=== PATIENT | male | born 1990 | race Caucasian/White ===

== ENCOUNTER 2016-10-13 14:00 | Emergency (ER) | payer MEDICARE, OTHER ==
--- NOTE | 2016-10-13 14:32 | ED ---
Psych HPI - General Chief Complaint: Psychiatric Symptoms Stated Complaint: Mental Health Eval Time Seen by Provider: 10/13/16 14:16 Source: patient Mode of arrival: ambulatory - History of Present Illness Initial Comments: 26-year-old male presents emergency department for psychiatric evaluation. Patient states that he has a history of schizophrenia, drug abuse. Patient states that he normally sees a psychiatrist in [place] police states that he was evicted from his apartment and is homeless in [place] though he is currently staying with his father in the meantime here. Patient states he has not used any illicit drugs and last 2 weeks as his been stable his father. Patient denies any alcohol abuse. Patient states he also hears voices and is states his medications that he does take has not stopped them. Patient states that he feels that he may kill himself with his drug abuse. Patient states that he uses heroin/meth/crack. Patient states he normally injects. Patient denies any physical was at this time. Patient has a homicidal thoughts. Patient states he has stating rehab facility in [place] for 30 days in the past. - Related Data Home Medications Medication Instructions Recorded Confirmed Cariprazine Hydrochloride [Vraylar] 6 mg PO HS 10/13/16 10/13/16 Vortioxetine Hydrobromide 10 mg PO QAM 10/13/16 10/13/16 [Trintellix] buPROPion XL [Wellbutrin Xl] 300 mg PO DAILY 10/13/16 10/13/16 clonazePAM [KlonoPIN] 0.5 mg PO BID PRN 10/13/16 10/13/16 Allergies Allergy/AdvReac Type Severity Reaction Status Date / Time atomoxetine [From Strattera] Allergy Rash/Hives Verified 10/13/16 15:17 Review of Systems ROS Statement: Those systems with pertinent positive or pertinent negative responses have been documented in the HPI. ROS Other: All systems not noted in ROS Statement are negative. Past Medical History Past Medical History: No Reported History History of Any Multi-Drug Resistant Organisms: None Reported Past Surgical History: Orthopedic Surgery Past Psychological History: Anxiety, Depression, Schizophrenia Smoking Status: Current every day smoker Past Alcohol Use History: Occasional Past Drug Use History: None Reported General Exam Limitations: no limitations General appearance: alert, in no apparent distress Head exam: Present: atraumatic, normocephalic, normal inspection Eye exam: Present: normal appearance, PERRL, EOMI. Absent: scleral icterus, conjunctival injection, periorbital swelling ENT exam: Present: normal exam, normal oropharynx, mucous membranes moist, TM's normal bilaterally, normal external ear exam Neck exam: Present: normal inspection, full ROM. Absent: tenderness, meningismus, lymphadenopathy Respiratory exam: Present: normal lung sounds bilaterally. Absent: respiratory distress, wheezes, rales, rhonchi, stridor Cardiovascular Exam: Present: regular rate, normal rhythm, normal heart sounds. Absent: systolic murmur, diastolic murmur, rubs, gallop, clicks GI/Abdominal exam: Present: soft, normal bowel sounds. Absent: distended, tenderness, guarding, rebound, rigid Neurological exam: Present: alert, oriented X3, CN II-XII intact Psychiatric exam: Present: flat affect Skin exam: Present: warm, dry, intact, normal color. Absent: rash Course Vital Signs 10/13/16 14:01 Temperature 98.2 F Pulse Rate 110 H Respiratory 20 Rate Blood Pressure 147/109 O2 Sat by Pulse 99 Oximetry Medical Decision Making - Medical Decision Making Patient was evaluated by EPS. Patient does not meet inpatient criteria at this time. Patient will be linked with [facility] locally. Patient has open case in the interim. Patient will be discharged to [facility]. - Lab Data Lab Results 10/13/16 Range/Units 16:10 Urine Opiates Screen Not Detected (NotDetected) Ur Oxycodone Screen Not Detected (NotDetected) Urine Methadone Screen Not Detected (NotDetected) Ur Propoxyphene Screen Not Detected (NotDetected) Ur Barbiturates Screen Not Detected (NotDetected) U Tricyclic Antidepress Not Detected (NotDetected) Ur Phencyclidine Scrn Not Detected (NotDetected) Ur Amphetamines Screen Not Detected (NotDetected) U Methamphetamines Scrn Not Detected (NotDetected) U Benzodiazepines Scrn Not Detected (NotDetected) Urine Cocaine Screen Not Detected (NotDetected) U Marijuana (THC) Screen Not Detected (NotDetected) Disposition Clinical Impression: Schizophrenia, History of drug abuse Disposition: HOME SELF-CARE Condition: Stable Instructions: Schizophrenia (ED) Additional Instructions: Follow up with [facility] as directed.Please return to the Emergency Department if symptoms worsen or any other concerns. Time of Disposition: 18:55
[2016-10-13 19:05] VITALS: BP 125/76; PULSE 107; RESP 18; TEMP 98
== END 2016-10-13 19:06 | disposition home or self-care (01) ==
LOC: EC 14:00
DX: F20.9 Schizophrenia, unspecified (principal); F32.9 Major depressive disorder, single episode, unspecified; F41.9 Anxiety disorder, unspecified; F17.200 Nicotine dependence, unspecified, uncomplicated; Z86.59 Personal history of other mental and behavioral disorders; Z79.899 Other long term (current) drug therapy; Z88.8 Allergy status to other drugs, medicaments and biological substances
CPT/HCPCS: 80306; 82075; 99284

== ENCOUNTER 2017-01-06 22:28 | Emergency (ER) | payer MEDICARE, OTHER ==
[2017-01-06 22:32] VITALS: RESP 18
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
[2017-01-07 01:11] VITALS: BP 122/65; PULSE 59; TEMP 97
== END 2017-01-07 01:16 | disposition home or self-care (01) ==
LOC: EC 22:28
DX: F32.9 Major depressive disorder, single episode, unspecified (principal); F20.9 Schizophrenia, unspecified; F41.9 Anxiety disorder, unspecified; F17.200 Nicotine dependence, unspecified, uncomplicated; Z79.899 Other long term (current) drug therapy; Z88.8 Allergy status to other drugs, medicaments and biological substances
CPT/HCPCS: 82075; 99284

== ENCOUNTER 2018-02-01 15:40 | Emergency (ER) | payer MEDICARE, OTHER ==
--- NOTE | 2018-02-01 16:15 | ED ---
Psych HPI - General Chief Complaint: Psychiatric Symptoms Stated Complaint: Mental Health Time Seen by Provider: 02/01/18 15:57 Source: patient Mode of arrival: ambulatory - History of Present Illness Initial Comments: Patient is a 27-year-old male with a history of schizophrenia and bipolar disease who presents with the chief complaint of psychiatric evaluation. Patient states that he has been injecting amphetamine, last use was about 14 hours ago. The patient states that he has not had his Abilify injection in 2 months. He states that he is currently hearing voices but they're not telling him to do anything bad. He just wants to help himself. patient denies any suicidal or homicidal ideations. - Related Data Home Medications Medication Instructions Recorded Confirmed buPROPion XL [Wellbutrin Xl] 300 mg PO DAILY 10/13/16 02/01/18 ARIPiprazole [Abilify Maintena] 300 mg IM Q30D 02/01/18 02/01/18 Loratadine [Claritin] 10 mg PO DAILY 02/01/18 02/01/18 cloNIDine HCL [Catapres] 0.1 mg PO BID 02/01/18 02/01/18 Allergies Allergy/AdvReac Type Severity Reaction Status Date / Time atomoxetine [From Strattera] Allergy Rash/Hives Verified 02/01/18 16:50 Review of Systems ROS Statement: Those systems with pertinent positive or pertinent negative responses have been documented in the HPI. ROS Other: All systems not noted in ROS Statement are negative. Psychiatric: Reports: anxiety, auditory hallucinations Past Medical History Past Medical History: No Reported History History of Any Multi-Drug Resistant Organisms: None Reported Past Surgical History: Orthopedic Surgery Past Psychological History: Anxiety, Depression, Schizophrenia Smoking Status: Current every day smoker Past Alcohol Use History: Occasional Past Drug Use History: Marijuana, Methamphetamine General Exam Limitations: no limitations General appearance: alert, in no apparent distress Head exam: Present: atraumatic, normocephalic Eye exam: Present: normal appearance ENT exam: Present: normal exam Neck exam: Present: normal inspection Respiratory exam: Present: normal lung sounds bilaterally. Absent: respiratory distress, wheezes Cardiovascular Exam: Present: normal rhythm, tachycardia GI/Abdominal exam: Present: soft. Absent: distended, tenderness Rectal exam: Present: deferred Extremities exam: Present: other (patient has some redness along the medial aspect of his right upper arm. the area is not tender, fluctuant, or warm. there is no pain to palpation along the arm. ) Neurological exam: Present: alert, oriented X3 Psychiatric exam: Present: normal mood, anxious, other (auditory hallucinations ) Skin exam: Present: warm, dry, intact Course Vital Signs 02/01/18 02/01/18 15:52 18:51 Temperature 98.3 F 97.6 F Pulse Rate 104 H Respiratory 18 16 Rate Blood Pressure 140/84 121/73 O2 Sat by Pulse 100 100 Oximetry Medical Decision Making - Medical Decision Making Patient presents with a CC of psych evaluation. he states he uses meth, last use 14 hours ago. he thinks this along with not getting his abilify shot is causing him to hear voices. he denies suicidal or homicidal ideations. he states he wants to help himself. he is calm on initial evaluation. HR mildly tachycardic, otherwise vital signs stable. BAT negative, given streaking on arm , patient will be evaluated with basic labs, EKG, and UDS. patient to be evaluated by EPS. EKG performed at 423 shows normal sinus rhythm with a rate of 96 bpm. EKG is otherwise unremarkable. 5:06 PM Lab evaluation is unremarkable. White blood cells are 9000. Patient's UDS is positive for amphetamines, methamphetamine, and marijuana. Patient clear for evaluation by EPS. 6:55 PM EPS discussed the case with me, at this time, all parties agreeable to OP management and follow up for tyrelly. at time of discharge, patient alert, oriented, states he is not suicidal or homicidal. patient comfortable with care plan. he was discharged in stable condition. - Lab Data Result diagrams: 02/01/18 16:36 02/01/18 16:36 Lab Results 02/01/18 02/01/18 02/01/18 Range/Units 15:56 16:36 16:36 WBC 9.5 (3.8-10.6) k/uL RBC 5.35 (4.30-5.90) m/uL Hgb 14.8 (13.0-17.5) gm/dL Hct 43.6 (39.0-53.0) % MCV 81.5 (80.0-100.0) fL MCH 27.6 (25.0-35.0) pg MCHC 33.9 (31.0-37.0) g/dL RDW 12.8 (11.5-15.5) % Plt Count 371 (150-450) k/uL Neutrophils % 59 % Lymphocytes % 31 % Monocytes % 5 % Eosinophils % 3 % Basophils % 1 % Neutrophils # 5.6 (1.3-7.7) k/uL Lymphocytes # 2.9 (1.0-4.8) k/uL Monocytes # 0.5 (0-1.0) k/uL Eosinophils # 0.3 (0-0.7) k/uL Basophils # 0.1 (0-0.2) k/uL Sodium 140 (137-145) mmol/L Potassium 3.5 (3.5-5.1) mmol/L Chloride 103 (98-107) mmol/L Carbon Dioxide 26 (22-30) mmol/L Anion Gap 11 mmol/L BUN 24 H (9-20) mg/dL Creatinine 0.90 (0.66-1.25) mg/dL Est GFR (CKD-EPI)AfAm >90 (>60 ml/min/1.73 sqM) Est GFR (CKD-EPI)NonAf >90 (>60 ml/min/1.73 sqM) Glucose 90 (74-99) mg/dL Calcium 9.1 (8.4-10.2) mg/dL Urine Opiates Screen Not Detected (NotDetected) Ur Oxycodone Screen Not Detected (NotDetected) Urine Methadone Screen Not Detected (NotDetected) Ur Propoxyphene Screen Not Detected (NotDetected) Ur Barbiturates Screen Not Detected (NotDetected) U Tricyclic Antidepress Not Detected (NotDetected) Ur Phencyclidine Scrn Not Detected (NotDetected) Ur Amphetamines Screen Detected H (NotDetected) U Methamphetamines Scrn Detected H (NotDetected) U Benzodiazepines Scrn Not Detected (NotDetected) Urine Cocaine Screen Not Detected (NotDetected) U Marijuana (THC) Screen Detected H (NotDetected) Disposition Clinical Impression: Schizophrenia, Drug abuse Disposition: HOME SELF-CARE Condition: Good Is patient prescribed a controlled substance at d/c from ED?: No Referrals: None,Stated [Primary Care Provider] - 1-2 days Flash Sandoval MD [STAFF PHYSICIAN] - 1-2 days
[2018-02-01 16:40] LABS: Cocaine Screen,Urine Not Detected (NotDetected); Opiate Screen,Urine Not Detected (NotDetected); Phencyclidine Screen,Urine Not Detected (NotDetected); Urn Cannabinoid Scrn Detected (NotDetected)
[2018-02-01 16:41] LABS: Amphetamine Screen,Urine Detected (NotDetected); Barbiturate Screen,Urine Not Detected (NotDetected); Benzodiazepines Screen,Urine Not Detected (NotDetected); Methadone Screen, Urine Not Detected (NotDetected); Oxycodone Screen, Urine Not Detected (NotDetected); Tricyclic Antidepressant,Urine Not Detected (NotDetected)
[2018-02-01 16:52] LABS: Basophils # (A) 0.1 k/uL (0-0.2); Basophils % (A) 1 %; Eosinophils # (A) 0.3 k/uL (0-0.7); Eosinophils % (A) 3 %; HCT 43.6 % (39.0-53.0); HGB 14.8 gm/dL (13.0-17.5); Lymphocytes # (A) 2.9 k/uL (1.0-4.8); Lymphocytes % (A) 31 %; MCH 27.6 pg (25.0-35.0); MCHC 33.9 g/dL (31.0-37.0); MCV 81.5 fL (80.0-100.0); Mean Platelet Volume 6.2; Monocytes # (A) 0.5 k/uL (0-1.0); Monocytes % (A) 5 %; Neutrophils # (A) 5.6 k/uL (1.3-7.7); Neutrophils % (A) 59 %; Platelet Count 371 k/uL (150-450); RBC 5.35 m/uL (4.30-5.90); RDW 12.8 % (11.5-15.5); WBC 9.5 k/uL (3.8-10.6)
[2018-02-01 16:54] LABS: Anion Gap 11 mmol/L; Blood Urea Nitrogen 24 mg/dL (9-20); Calcium 9.1 mg/dL (8.4-10.2); Carbon Dioxide 26 mmol/L (22-30); Chloride 103 mmol/L (98-107); Glucose 90 mg/dL (74-99); Potassium 3.5 mmol/L (3.5-5.1); Sodium 140 mmol/L (137-145)
[2018-02-01 19:12] VITALS: BP 116/70; PULSE 81; RESP 18; TEMP 97.8
== END 2018-02-01 19:20 | disposition home or self-care (01) ==
LOC: EC 15:40
DX: F20.9 Schizophrenia, unspecified (principal); F15.10 Other stimulant abuse, uncomplicated; F41.9 Anxiety disorder, unspecified; F32.9 Major depressive disorder, single episode, unspecified; F17.200 Nicotine dependence, unspecified, uncomplicated; Z79.899 Other long term (current) drug therapy; Z88.8 Allergy status to other drugs, medicaments and biological substances
CPT/HCPCS: 36415; 80048; 80306; 82075; 85025; 93005; 99284

== ENCOUNTER 2018-03-17 16:08 | Inpatient (IN) | payer MEDICARE, MEDICAID ==
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
[2018-03-17] MEDS ORDERED: ZIPRASIDONE 20 MG VIAL IM PRN ×2 (18:51→22:05)
[2018-03-17] MEDS ORDERED: LORazepam 2 MG/ML INJ IM STA (18:51)
[2018-03-17] MEDS ORDERED: ACETAMINOPHEN TAB 325 MG TAB PO PRN (22:05)
[2018-03-17] MEDS ORDERED: MAGNESIUM HYDROXIDE 2,400 MG/10 ML CUP PO PRN (22:05)
[2018-03-17] MEDS ORDERED: MAG HYDROX/AL HYDROX/SIMETH 30 ML CUP PO PRN (22:05)
[2018-03-17] MEDS ORDERED: LORazepam 2 MG/ML INJ IM PRN (22:10)
--- NOTE | 2018-03-18 06:57 | P.PN ---
Progress Note - Text Progress Note Date: 03/18/18 this is second attempt to evaluate this patient , as a new medical consult however, patient continues to be heavily sedated in the quiet Room. please notify the team when the patient is ready to be seen
[2018-03-18 09:07] LABS: Basophils % (A) 0 %; Eosinophils # (A) 0.2 k/uL (0-0.7); Eosinophils % (A) 2 %; HCT 46.9 % (39.0-53.0); HGB 15.9 gm/dL (13.0-17.5); Lymphocytes % (A) 30 %; MCH 28.5 pg (25.0-35.0); MCHC 33.9 g/dL (31.0-37.0); MCV 84.1 fL (80.0-100.0); Mean Platelet Volume 6.3; Monocytes # (A) 0.5 k/uL (0-1.0); Monocytes % (A) 5 %; Neutrophils # (A) 6.3 k/uL (1.3-7.7); Neutrophils % (A) 62 %; Platelet Count 398 k/uL (150-450); RBC 5.58 m/uL (4.30-5.90); WBC 10.1 k/uL (3.8-10.6)
[2018-03-18] MEDS: NICOTINE 14MG/24HR PATCH TRANSDERM SCH ×2 (09:52→15:36)
[2018-03-18 10:06] LABS: ALT 58 U/L (21-72); AST 66 U/L (17-59); Albumin 4.4 g/dL (3.5-5.0); Alkaline Phosphatase 102 U/L (38-126); Anion Gap 9 mmol/L; Blood Urea Nitrogen 20 mg/dL (9-20); Calcium 9.5 mg/dL (8.4-10.2); Carbon Dioxide 27 mmol/L (22-30); Chloride 105 mmol/L (98-107); Cholesterol 182 mg/dL (<200); Glucose 99 mg/dL (74-99); HDL Cholesterol 39 mg/dL (40-60); LDL Cholesterol,Calculated 119 mg/dL (0-99); Potassium 4.3 mmol/L (3.5-5.1); Sodium 141 mmol/L (137-145); Total Bilirubin 1.3 mg/dL (0.2-1.3); Total Protein 7.5 g/dL (6.3-8.2); Triglycerides 118 mg/dL (<150)
--- NOTE | 2018-03-18 12:30 | P.HP ---
Psychiatric H&P - . H&P Date: 03/18/18 History & Physical: Allergies Allergy/AdvReac Type Severity Reaction Status Date / Time atomoxetine [From Strattera] Allergy Rash/Hives Verified 03/18/18 03:48 Vital Signs Temp 99 F 03/17/18 20:56 Pulse 108 H 03/17/18 22:01 Resp 15 03/17/18 22:01 BP 130/75 03/17/18 22:01 Pulse Ox 99 03/17/18 22:01 Intake & Output 03/17/18 03/18/18 03/18/18 18:59 06:59 18:59 Weight 99.79 kg Laboratory Last Values WBC 10.1 k/uL (3.8-10.6) 03/18/18 08:34 RBC 5.58 m/uL (4.30-5.90) 03/18/18 08:34 Hgb 15.9 gm/dL (13.0-17.5) 03/18/18 08:34 Hct 46.9 % (39.0-53.0) 03/18/18 08:34 MCV 84.1 fL (80.0-100.0) 03/18/18 08:34 MCH 28.5 pg (25.0-35.0) 03/18/18 08:34 MCHC 33.9 g/dL (31.0-37.0) 03/18/18 08:34 RDW 13.0 % (11.5-15.5) 03/18/18 08:34 Plt Count 398 k/uL (150-450) 03/18/18 08:34 Neutrophils % 62 % 03/18/18 08:34 Lymphocytes % 30 % 03/18/18 08:34 Monocytes % 5 % 03/18/18 08:34 Eosinophils % 2 % 03/18/18 08:34 Basophils % 0 % 03/18/18 08:34 Neutrophils # 6.3 k/uL (1.3-7.7) 03/18/18 08:34 Lymphocytes # 3.0 k/uL (1.0-4.8) 03/18/18 08:34 Monocytes # 0.5 k/uL (0-1.0) 03/18/18 08:34 Eosinophils # 0.2 k/uL (0-0.7) 03/18/18 08:34 Basophils # 0.0 k/uL (0-0.2) 03/18/18 08:34 Sodium 141 mmol/L (137-145) 03/18/18 08:34 Potassium 4.3 mmol/L (3.5-5.1) 03/18/18 08:34 Chloride 105 mmol/L (98-107) 03/18/18 08:34 Carbon Dioxide 27 mmol/L (22-30) 03/18/18 08:34 Anion Gap 9 mmol/L 03/18/18 08:34 BUN 20 mg/dL (9-20) 03/18/18 08:34 Creatinine 1.00 mg/dL (0.66-1.25) 03/18/18 08:34 Est GFR (CKD-EPI)AfAm >90 (>60 ml/min/1.73 sqM) 03/18/18 08:34 Est GFR (CKD-EPI)NonAf >90 (>60 ml/min/1.73 sqM) 03/18/18 08:34 Glucose 99 mg/dL (74-99) 03/18/18 08:34 Calcium 9.5 mg/dL (8.4-10.2) 03/18/18 08:34 Total Bilirubin 1.3 mg/dL (0.2-1.3) 03/18/18 08:34 AST 66 U/L (17-59) H 03/18/18 08:34 ALT 58 U/L (21-72) 03/18/18 08:34 Alkaline Phosphatase 102 U/L (38-126) 03/18/18 08:34 Total Protein 7.5 g/dL (6.3-8.2) 03/18/18 08:34 Albumin 4.4 g/dL (3.5-5.0) 03/18/18 08:34 Triglycerides 118 mg/dL (<150) 03/18/18 08:34 Cholesterol 182 mg/dL (<200) 03/18/18 08:34 LDL Cholesterol, Calc 119 mg/dL (0-99) H 03/18/18 08:34 HDL Cholesterol 39 mg/dL (40-60) L 03/18/18 08:34 TSH 1.080 mIU/L (0.465-4.680) 03/18/18 08:34 03/18/18 12:18 Identification: Patient is a 27-year-old male who was brought to the emergency room by police after becoming agitated and threatening at [facility]. History of Present Illness: Patient was seen in this quiet room this morning he refused to give me much of the history. Patient was brought to the emergency room where he required both restraints and IM medication because he was threatening to kill himself as well as staff. Thought security was telepathically trying to kill him and patient threatened to fight with regard as well as threatened the nurse that if she didn't let him out of restraints and 10 minutes he was going to come after her. When interviewed this morning the patient states he has no recollection of yesterday's events at all. States that he was not using any drugs or alcohol and states he had only been using marijuana prior to presenting to the [facility] yesterday. Patient states that he has been on Abilify injectable but declines his next dose which is due now. Patient states that he isn't going for any inpatient drug rehab and denies that there is any order requiring him to do so. Patient states that this whole incident was caused I am misunderstanding when he went to [facility] to obtain a check. Patient states he doesn't need medications and doesn't need to be in the hospital. Patient was angry refusing to answer most of my questions stating that I didn't need to know any of this information. Past Psychiatric History: Per the information from [facility] the patient has been in treatment for most of his adult continued life. He does have a history of prior psychiatric admissions. He had been in [place] for a year under the care of [facility] there. Patient has a history of using cocaine, IV heroin and methamphetamine in the past, patient refused to give a urine specimen and denies that he is currently using anything but marijuana. Patient most recently had received injectable long-acting Abilify 300 mg on February 14. His prior dose to that was on November 04. 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 Substance Use History: Patient states that he is only using marijuana currently and states he last used methamphetamine 1-2 weeks ago and he denies any other drug use. Patient denies any alcohol use. Patient states he does use tobacco products. Legal History: Unable to obtain Mental status: Appearance/Attitude: Patient is dressed in a hospital gown sits up in bed and then returns to lying position and is only superficially cooperative Behavior: Patient does not display any psychomotor agitation or retardation but becomes increasingly irritable during the interview. Speech/Language: Patient's speech is spontaneous of normal volume and rhythm and he is coherent. Thought Process: Patient is goal-directed, his responses to questions are brief and non-elaborative there is no evidence of loose association or flight of ideas. Thought Content: Patient would not respond to questions regarding auditory or visual hallucinations and I was unable to elicit any delusions or paranoid ideation from the patient. Patient stated that he doesn't need any medication and doesn't need any treatment and states that he has no idea what his prior treatment history is. Patient stated that he was not able to recall the events of yesterday only that there was a misunderstanding about getting his check. Patient told me that he refuses to speak with me because I don't need to know anything. Suicidal/Homicidal Ideation: Patient would not respond Sensorium/Cognition: Patient is alert and oriented to person, place further testing was not hospital as the patient is not responding to questions. Mood/Affect: Patient's mood is irritable, his affect is appropriate to his mood Insight/Judgment: Patient's insight and judgment are limited Intellectual Functioning: Patient's intellectual functioning appears average Strength/Weakness: Unable to assess/lack of compliance with outpatient care, follow-up treatment, medication, use of drugs Assessment: Patient was admitted after presenting to [facility] demanding a check and becoming increasingly irritable and threatening, when sent to the emergency room he continued to be threatening requiring restraints and IM medication. Today on assessment the patient refuses to speak with me stating he does need to be here has no recollection of what occurred yesterday and denies that he needs any medication and states that this is the first time he's ever been admitted to the hospital and can't tell me how long he is been treated for psychiatric problems. Patient states he doesn't need to be on medication. He denied any use of alcohol or drug stating that he hasn't used methamphetamine 1-2 weeks and states that the only drug use currently been using is marijuana. Admission Diagnosis: Psychotic disorder unknown etiology, history of drug use Plan: Patient was admitted and a second certificate was completed as the patient is refusing medications, stating that he does not need to be here. Patient will be placed on routine observation with the security personnel due to his agitated threatening behavior in the emergency room. Patient was ordered routine laboratory studies as well as a medical consultation. Patient will continue on Geodon and Ativan on an as-needed basis for agitated, threatening behavior. Patient is declining any medications and is due currently for his next injection of long-acting Abilify.
--- NOTE | 2018-03-18 12:44 | P.HPMEDMHU ---
History of Present Illness H&P Date: 03/18/18 Chief Complaint: depression Patient is a 27 yo CM with no know past medical history who presented at the direction of [facility] [address] with suicidal ideation. He was seen in the ED and subsequently admitted to the [facility]. Patient seen and examined at bedside. He is resistant to answering questions at first. She initially states he doesn't have a PCP but then says he saw Dr. Marrufo. Ears ago but doesn't follow with him regularly. He denies any chest pain , shortness of breath, nausea, vomiting, diarrhea, constipation, or dysuria. He then tells me that next time he just won't tell anyone he is having follow- up to decide if he is locked up and not allowed to eat, watch TV, or smoke. We discussed that he could have a nicotine patch placed that we do have a TV in food available to him. He then states he feels fine otherwise he is just suffering from depression. He denies any history of illicit drug use myself. Review of Systems Pertinent positives and negatives as discussed in HPI, a complete review of systems was performed and all other systems are negative. Past Medical History Past Medical History: No Reported History History of Any Multi-Drug Resistant Organisms: None Reported Past Surgical History: No Surgical Hx Reported Past Psychological History: Anxiety, Depression, Schizophrenia Smoking Status: Current every day smoker Past Alcohol Use History: Occasional Past Drug Use History: None Reported Medications and Allergies Home Medications Medication Instructions Recorded Confirmed Type No Known Home Medications 03/17/18 03/18/18 History Allergies Allergy/AdvReac Type Severity Reaction Status Date / Time atomoxetine [From Strattera] Allergy Rash/Hives Verified 03/18/18 03:48 Physical Exam Osteopathic Statement: *. No significant issues noted on an osteopathic structural exam other than those noted in the History and Physical/Consult. Vitals: Vital Signs Temp Pulse Pulse Resp BP BP Pulse Ox 03/17/18 22:01 108 H 15 130/75 99 03/17/18 20:56 99 F 109 H 18 126/83 100 03/17/18 16:19 98.0 F 130 H 18 134/101 99 Intake and Output 03/17/18 03/18/18 03/18/18 22:59 06:59 14:59 Other: Weight 99.79 kg General: non toxic, no distress, appears at stated age, normal weight Derm: no unusual rashes/lesions no unusual ecchymoses, warm, dry, multiple tattoo Head: atraumatic, normocephalic, symmetric Eyes: EOMI, no lid lag, anicteric sclera, pupils equal round reactive to light ENT: Nose and ears atraumatic, no thrush, no pharyngeal erythema Neck: No thyromegaly, no cervical lymphadenopathy, trachea midline, supple Mouth: no lip lesion, mucus membranes dry Cardiovascular: S1S2 reg, no murmur, positive posterior tibial pulse bilateral, no edema, capillary refill less than 2 seconds Lungs: CTA bilateral, no rhonchi, no rales , no accessory muscle use Abdominal: soft, nontender to palpation, no guarding, no appreciable organomegaly, normal bowel sounds Ext: no gross muscle atrophy, muscle strength 5 out of 5 in all 4 extremities grossly, no contractures, Neuro: CN II-XI grossly intact, light touch intact all 4 extremities, finger to nose within normal limits, Psych: Alert, flat affect Cranial Nerve Examination - Cranial Nerves Cranial Nerve II- Optic: Intact Cranial Nerve III- Oculomotor: Intact Cranial Nerve IV- Trochlear: Intact Cranial Nerve V- Trigeminal: Intact Cranial Nerve - Abducens: Intact Cranial Nerve VII- Facial: Intact Cranial Nerve VIII- Auditory: Intact Cranial Nerve IX- Glossopharyngeal: Intact Cranial Nerve X- Vagus: Intact Cranial Nerve XI- Accessory: Intact Cranial Nerve XII- Hypoglossal: Intact Results CBC & Chem 7: 03/18/18 08:34 03/18/18 08:34 Labs: Abnormal Lab Results - Last 24 Hours (Table) 03/18/18 Range/Units 08:34 AST 66 H (17-59) U/L LDL Cholesterol, Calc 119 H (0-99) mg/dL HDL Cholesterol 39 L (40-60) mg/dL Thrombosis Risk Factor Assmnt - DVT/VTE Prophylaxis DVT/VTE Prophylaxis: Low risk, early ambulation encouraged Assessment and Plan Assessment: Tobacco abuse - nicotine patch Suicidal ideation - Your psych management - check UDS Thank you for allowing us to participate in the care of this patient. We will follow peripherally. Do not hesitate to contact us with questions. Someone can be reached from the [facility] hospitalist group at all hours of the day at [phone].
[2018-03-18] MEDS: LORazepam 1 MG TAB PO PRN (15:36)
[2018-03-18 17:16] LABS: Hemoglobin A1C 5.5 % (4.0-6.0)
[2018-03-19] MEDS: NICOTINE 14MG/24HR PATCH TRANSDERM SCH (07:58)
--- NOTE | 2018-03-19 12:42 | PN ---
PROGRESS NOTE DATE OF SERVICE: March 19, 2018. The patient is seen and interviewed, found lying in his bed. Made poor eye contact. He reports he is doing just fine. He stated he is fine. He is not going to hurt nobody. He said he was mad at his father, who has been not there for him. He went down saying that he has been disabled and is not getting any support from his father. He reports he has a pelon who is not giving him enough money. He denies any suicidal ideation. He said he is feeling very tired as he has been not sleeping in days. He reports that he has been diagnosed with schizophrenia. At this time, he denies hearing voices or seeing things. He is still on 1 on 1 due to threats he made but now he feels a little calmer. MENTAL STATUS EXAMINATION: Patient is alert, awake, oriented x4. Fair eye contact. Speech few word sentences. Mood is irritable with congruent affect. He denies any suicidal ideation. I did not see him responding to internal stimuli. Intellect is average. Attention span was good. Insight, judgment, improving slowly and gradually. ASSESSMENT: Schizophrenia. PLAN OF TREATMENT: We would discontinue 1 on 1 as he is sarabjit for safety and he wants to go home. We will continue to monitor his behaviors closely. We will adjust his medications accordingly. We will put him on Depakote 500 mg at bedtime. We will continue with Abilify. We will also use trazodone to help him sleep at bedtime. Encourage to attend groups and meetings and will try to get the urine drug screen reporting. Encouraged to attend groups and meetings. JOSEE / SRI: [id number] /
[2018-03-19] MEDS: LORazepam 1 MG TAB PO PRN ×2 (14:50→18:46)
[2018-03-19 14:55] LABS: Appearance,Urine Clear (Clear); Bilirubin,Urine Negative (Negative); Blood,Urine Negative (Negative); Color,Urine Light Yellow; Glucose,Urine (UA) Negative (Negative); Ketones,Urine Negative (Negative); Leukocyte Esterase,Urine Negative (Negative); Nitrite,Urine Negative (Negative); Protein,Urine Negative (Negative); Specific Gravity,Urine 1.007 (1.001-1.035); Urobilinogen,Urine <2.0 mg/dL (<2.0)
[2018-03-19 15:06] LABS: Amphetamine Screen,Urine Not Detected (NotDetected); Barbiturate Screen,Urine Not Detected (NotDetected); Benzodiazepines Screen,Urine Not Detected (NotDetected); Cocaine Screen,Urine Not Detected (NotDetected); Methadone Screen, Urine Not Detected (NotDetected); Opiate Screen,Urine Not Detected (NotDetected); Oxycodone Screen, Urine Not Detected (NotDetected); Phencyclidine Screen,Urine Not Detected (NotDetected); Tricyclic Antidepressant,Urine Not Detected (NotDetected); Urn Cannabinoid Scrn Not Detected (NotDetected)
[2018-03-19] MEDS: traZODone HCL 100 MG TAB PO SCH (20:58)
[2018-03-19] MEDS: DIVALPROEX 500 MG TABLET.DR PO SCH (20:58)
[2018-03-20] MEDS: NICOTINE 14MG/24HR PATCH TRANSDERM SCH (09:10)
[2018-03-20] MEDS: DIVALPROEX 500 MG TABLET.DR PO SCH ×2 (09:10→20:45)
--- NOTE | 2018-03-20 14:16 | PN ---
PROGRESS NOTE Patient seen, interviewed and found lying in his bed. Reports doing somewhat better. He is barely well controlled. He states "Restore my dopamine receptors. I am feeling bored and tired." Patient reports he was doing meth last week, but he has not done it recently as his urine drug screen came out negative. He said due to use of meth, his dopamine is gone and he needs something to cheer him up and make his mood better. Yesterday he was pushing hard to get home. Today he denies having any issues. MENTAL STATUS EXAMINATION: Patient is alert, oriented x4. Has fair eye contact. Speech, few word sentences. Soft tone. Mood is anxious with congruent affect. Denies suicidal or homicidal ideation. I do not see him responding to internal stimuli. Insight and judgment improving slow and gradually. PLAN: Will continue to observe his behavior closely. He has been doing better on Depakote and Abilify. There is likelihood that we can start him on Wellbutrin, but there is a risk of psychosis with Wellbutrin, though he has been taking Abilify. Will continue to adjust his medications accordingly. Encouraged to attend groups and meetings. Support therapy provided. MMODL / IJN: [id number] /
[2018-03-20] MEDS: LORazepam 1 MG TAB PO PRN ×2 (15:11→19:09)
[2018-03-20] MEDS: traZODone HCL 100 MG TAB PO SCH (20:45)
[2018-03-21] MEDS: NICOTINE 14MG/24HR PATCH TRANSDERM SCH ×2 (08:54→16:28)
[2018-03-21] MEDS ORDERED: ARIPiprazole 400 MG VIAL (NO CHARGE) IM ONE (10:03)
--- NOTE | 2018-03-21 13:11 | P.PN ---
Progress Note - Text Progress Note Date: 03/21/18 Interval History: Patient is a 27-year-old male who was seen this morning who appeared quite sedated. He states that he is perfectly fine but feeling sleepy. He denied that he was using any drugs prior to his admission and denied that he is hearing voices or is feeling paranoid. Patient reported that he was willing to restart the injectable Abilify today. Patient had no other complaints other than he wanted to know when he was going to be discharged. Mental Status: Appearance/Attitude: Patient is casually dressed, appears quite sleepy makes intermittent eye contact and was superficially cooperative Behavior: Patient did not display any psychomotor agitation or retardation. Speech/Language: Patient's speech was of normal volume and rhythm and he was coherent Thought Process: Patient was limited in his responses which were brief, complaining that he wanted to leave was feeling perfectly fine Thought Content: Patient denied auditory or visual hallucinations and no delusions or paranoid ideation were elicited. Patient states he's feeling perfectly fine had not been using any drugs on the street and wants to be discharged today. He reports that he is sleeping and eating fine Suicidal/Homicidal Ideation: Patient denied any current suicidal or homicidal ideation Sensorium/Cognition: Patient is alert, but appears sleepy is oriented to person , place, and time Mood/Affect: Patient's mood is stable and his affect is appropriate Insight/Judgment: Patient's insight and judgment are fair Assessment: Patient reports that he is feeling perfectly fine denies all complaints or symptoms and states he is ready for discharge. Patient was agreeable to receiving the injectable Abilify today. Patient denied any use of drugs or alcohol prior to coming to the hospital. Patient and I again discussed that he is admitted under an involuntary basis and has yet to have his deferral meeting. Patient reported that he was sleepy today. Plan: We will discontinue the patient's trazodone and Depakote EC appears overly sedated this morning and has been maintained on Abilify alone as an outpatient. Patient was agreeable to receive his Abilify Maintenna 300 mg today and we'll continue the Abilify 20 mg orally until he receives injection. Patient has a deferral meeting tomorrow. Patient continues to require hospitalization to further stabilize his psychotic symptoms.
[2018-03-21] MEDS: LORazepam 1 MG TAB PO PRN (16:28)
[2018-03-21] MEDS: MELATONIN 3 MG TABLET PO SCH (22:35)
[2018-03-22 06:36] VITALS: RESP 16
[2018-03-22] MEDS: NICOTINE 14MG/24HR PATCH TRANSDERM SCH (08:14)
[2018-03-22] MEDS: LORazepam 1 MG TAB PO PRN ×2 (12:24→20:31)
--- NOTE | 2018-03-22 12:59 | P.PN ---
Progress Note - Text Progress Note Date: 03/22/18 Interval History: Patient is a 27-year-old male who was in his room again and refused to get up out of bed and speak with me. Patient states that he is not hearing voices and is not paranoid and states that he wasn't using drugs prior to coming to the hospital. When I asked him what about his statements in the emergency room regarding the information systems security specialist telepathically controlling him he states that he was acting that way in the emergency room to get released. When I asked him about his behavior at the [facility] he says it was all a misunderstanding. Patient reports no side effects from the oral Abilify. Mental Status: Appearance/Attitude: Patient is casually dressed, makes intermittent eye contact and is only superficially cooperative. Behavior: patient does not exhibit any psychomotor agitation or retardation. Speech/Language: Patient's speech is spontaneous, his speech is of normal volume and rhythm and he is coherent Thought Process: Patient's responses are brief and non-elaborative Thought Content: Patient denies auditory or visual hallucinations no delusions or paranoid ideation were elicited. Patient states that he sleeping and eating well. Patient states that he is not attending groups or activities. Suicidal/Homicidal Ideation: Patient denies any current suicidal or homicidal ideation. Sensorium/Cognition: Patient is alert and oriented to person, place, situation and time Mood/Affect: Patient's mood is euthymic and his affect is appropriate Insight/Judgment: Patient's insight and judgment are fair Assessment: Patient refused to leave the room to speak with me, he denied all symptoms this morning later after his referral meeting he came and asked me when he could be discharged. Patient slept for 7 hours yesterday and has not been attending groups or activities staying in his room in bed for the bulk of the time. Patient does have a court hearing tomorrow regarding his substance use treatment order. Patient continues to await the long-acting injectable Abilify as it is on available at this time. Plan: Patient continue on Abilify 20 mg orally until the long-acting injectable is available. Patient continues on melatonin 3 mg to assist with his sleep. Patient is encouraged to attend groups and activities. Patient will be discharged tomorrow with transfer by [facility] to the court for his hearing.
[2018-03-22] MEDS ORDERED: ARIPiprazole IM SYRINGE 400 MG (NO CHARGE) IM ONE (15:45)
[2018-03-22] MEDS ORDERED: ARIPiprazole 400 MG VIAL (NO CHARGE) IM ONE (16:00)
[2018-03-22] MEDS: MELATONIN 3 MG TABLET PO SCH (20:31)
[2018-03-23 06:46] VITALS: BP 134/59; PULSE 72; TEMP 98
[2018-03-23] MEDS: NICOTINE 14MG/24HR PATCH TRANSDERM SCH (09:54)
--- NOTE | 2018-03-23 10:07 | P.DS ---
Providers Date of admission: 03/17/18 21:59 Expected date of discharge: 03/23/18 Attending physician: Nicolasa Isbell MD Consults: 03/17/18 22:05 Consult Physician Routine Consulting Provider: Schuyler Orta Consult Reason/Comments: follow up H & P Do you want consulting provider notified?: Yes Primary care physician: Stated None Hospital Course: Discharge Diagnosis: Psychotic disorder unspecified, history of drug use Reason for Admission: Patient is a 27-year-old male who was brought to the emergency room by police after becoming agitated and threatening at [facility]. Patient was seen in quiet room this morning he refused to give me much of the history. Patient was brought to the emergency room where he required both restraints and IM medication because he was threatening to kill himself as well as staff. Thought security was telepathically trying to kill him and patient threatened to fight with security as well as threatened the nurse that if she didn't let him out of restraints in 10 minutes he was going to come after her. When interviewed this morning the patient states he has no recollection of yesterday's events at all. States that he was not using any drugs or alcohol and states he had only been using marijuana prior to presenting to the [facility] yesterday. Patient states that he has been on Abilify injectable but declines his next dose which is due now. Patient states that he isn't going for any inpatient drug rehab and denies that there is any order requiring him to do so. Patient states that this whole incident was caused by a misunderstanding when he went to [facility] to obtain a check. Patient states he doesn't need medications and doesn't need to be in the hospital. Patient was angry refusing to answer most of my questions stating that I didn't need to know any of this information. Mental status on Admission: Appearance/Attitude: Patient is dressed in a hospital gown sits up in bed and then returns to lying position and is only superficially cooperative Behavior: Patient does not display any psychomotor agitation or retardation but becomes increasingly irritable during the interview. Speech/Language: Patient's speech is spontaneous of normal volume and rhythm and he is coherent. Thought Process: Patient is goal-directed, his responses to questions are brief and non-elaborative there is no evidence of loose association or flight of ideas. Thought Content: Patient would not respond to questions regarding auditory or visual hallucinations and I was unable to elicit any delusions or paranoid ideation from the patient. Patient stated that he doesn't need any medication and doesn't need any treatment and states that he has no idea what his prior treatment history is. Patient stated that he was not able to recall the events of yesterday only that there was a misunderstanding about getting his check. Patient told me that he refuses to speak with me because I don't need to know anything. Suicidal/Homicidal Ideation: Patient would not respond Sensorium/Cognition: Patient is alert and oriented to person, place further testing was not hospital as the patient is not responding to questions. Mood/Affect: Patient's mood is irritable, his affect is appropriate to his mood Insight/Judgment: Patient's insight and judgment are limited Hospital Course: Patient was admitted on an involuntary basis, second certification was completed, patient was placed on routine observation in group and activity therapy were ordered. Patient had routine laboratory studies as well as a medical consultation. Urine drug screen was not obtained from the patient in the emergency room and a drug screen performed on March 19 was negative. Patient later on the day of admission and agreed to take oral Abilify but continued to refuse injectable Abilify his last injection being given on February 14. Patient was begun on Abilify 20 mg orally. Patient was compliant with his medication and spent most of his time in his room not attending groups or activities. Patient when approached would refuse to speak with me answering very few questions stating that he didn't want to attend groups and activities, didn't need to be here and stated that he was not using any drugs prior to coming into the hospital. Patient continued to insist that he had no recollection of what went on in the emergency room and then later told me it was because he wanted to be released and then told me that it was just a misunderstanding at [facility]. Patient was also on a substance treatment order from [facility] and had a court hearing scheduled which was changed until March 23 at 1:30 PM patient deferred his hearing on March 22. Patient after the deferral was noticed out on the unit in the afternoon, patient stated that he was agreeable to the injection and was given Abilify Maintena 400 mg on March 22. Patient was not voicing any paranoid ideation, there've been no threatening or physical threats made to staff, he had been compliant with his medication and injection. Patient was denying any suicidal or homicidal ideation. He continued to not attend any groups or activities. Patient stated that he was unaware that he was on an order for substance abuse treatment. Allergies atomoxetine [From Strattera] Allergy (Verified 03/18/18 03:48) Rash/Hives Laboratory Last Values WBC 10.1 k/uL (3.8-10.6) 03/18/18 08:34 RBC 5.58 m/uL (4.30-5.90) 03/18/18 08:34 Hgb 15.9 gm/dL (13.0-17.5) 03/18/18 08:34 Hct 46.9 % (39.0-53.0) 03/18/18 08:34 MCV 84.1 fL (80.0-100.0) 03/18/18 08:34 MCH 28.5 pg (25.0-35.0) 03/18/18 08:34 MCHC 33.9 g/dL (31.0-37.0) 03/18/18 08:34 RDW 13.0 % (11.5-15.5) 03/18/18 08:34 Plt Count 398 k/uL (150-450) 03/18/18 08:34 Neutrophils % 62 % 03/18/18 08:34 Lymphocytes % 30 % 03/18/18 08:34 Monocytes % 5 % 03/18/18 08:34 Eosinophils % 2 % 03/18/18 08:34 Basophils % 0 % 03/18/18 08:34 Neutrophils # 6.3 k/uL (1.3-7.7) 03/18/18 08:34 Lymphocytes # 3.0 k/uL (1.0-4.8) 03/18/18 08:34 Monocytes # 0.5 k/uL (0-1.0) 03/18/18 08:34 Eosinophils # 0.2 k/uL (0-0.7) 03/18/18 08:34 Basophils # 0.0 k/uL (0-0.2) 03/18/18 08:34 Sodium 141 mmol/L (137-145) 03/18/18 08:34 Potassium 4.3 mmol/L (3.5-5.1) 03/18/18 08:34 Chloride 105 mmol/L (98-107) 03/18/18 08:34 Carbon Dioxide 27 mmol/L (22-30) 03/18/18 08:34 Anion Gap 9 mmol/L 03/18/18 08:34 BUN 20 mg/dL (9-20) 03/18/18 08:34 Creatinine 1.00 mg/dL (0.66-1.25) 03/18/18 08:34 Est GFR (CKD-EPI)AfAm >90 (>60 ml/min/1.73 sqM) 03/18/18 08:34 Est GFR (CKD-EPI)NonAf >90 (>60 ml/min/1.73 sqM) 03/18/18 08:34 Glucose 99 mg/dL (74-99) 03/18/18 08:[address] Glu mg/dL 111 03/18/18 08:34 Hemoglobin A1c 5.5 % (4.0-6.0) 03/18/18 08:34 Calcium 9.5 mg/dL (8.4-10.2) 03/18/18 08:34 Total Bilirubin 1.3 mg/dL (0.2-1.3) 03/18/18 08:34 AST 66 U/L (17-59) H 03/18/18 08:34 ALT 58 U/L (21-72) 03/18/18 08:34 Alkaline Phosphatase 102 U/L (38-126) 03/18/18 08:34 Total Protein 7.5 g/dL (6.3-8.2) 03/18/18 08:34 Albumin 4.4 g/dL (3.5-5.0) 03/18/18 08:34 Triglycerides 118 mg/dL (<150) 03/18/18 08:34 Cholesterol 182 mg/dL (<200) 03/18/18 08:34 LDL Cholesterol, Calc 119 mg/dL (0-99) H 03/18/18 08:34 HDL Cholesterol 39 mg/dL (40-60) L 03/18/18 08:34 TSH 1.080 mIU/L (0.465-4.680) 03/18/18 08:34 Urine Color Light Yellow 03/19/18 14:32 Urine Appearance Clear (Clear) 03/19/18 14:32 Urine pH 7.0 (5.0-8.0) 03/19/18 14:32 Ur Specific [place] 1.007 (1.001-1.035) 03/19/18 14:32 Urine Protein Negative (Negative) 03/19/18 14:32 Urine Glucose (UA) Negative (Negative) 03/19/18 14:32 Urine Ketones Negative (Negative) 03/19/18 14:32 Urine Blood Negative (Negative) 03/19/18 14:32 Urine Nitrite Negative (Negative) 03/19/18 14:32 Urine Bilirubin Negative (Negative) 03/19/18 14:32 Urine Urobilinogen <2.0 mg/dL (<2.0) 03/19/18 14:32 Ur Leukocyte Esterase Negative (Negative) 03/19/18 14:32 Urine Opiates Screen Not Detected (NotDetected) 03/19/18 14:32 Ur Oxycodone Screen Not Detected (NotDetected) 03/19/18 14:32 Urine Methadone Screen Not Detected (NotDetected) 03/19/18 14:32 Ur Propoxyphene Screen Not Detected (NotDetected) 03/19/18 14:32 Ur Barbiturates Screen Not Detected (NotDetected) 03/19/18 14:32 U Tricyclic Antidepress Not Detected (NotDetected) 03/19/18 14:32 Ur Phencyclidine Scrn Not Detected (NotDetected) 03/19/18 14:32 Ur Amphetamines Screen Not Detected (NotDetected) 03/19/18 14:32 U Methamphetamines Scrn Not Detected (NotDetected) 03/19/18 14:32 U Benzodiazepines Scrn Not Detected (NotDetected) 03/19/18 14:32 Urine Cocaine Screen Not Detected (NotDetected) 03/19/18 14:32 U Marijuana (THC) Screen Not Detected (NotDetected) 03/19/18 14:32 Miscellaneous Test Drug Abuse Screen 03/18/18 15:38 Misc Test Result See Comment 03/18/18 15:38 Discharge Mental Status: Appearance/Attitude: Patient is casually dressed, makes intermittent eye contact and is superficially cooperative Behavior: Patient does not exhibit any psychomotor agitation or retardation. Speech/Language: Patient's speech is spontaneous of normal volume and rhythm and he is coherent Thought Process: Patient was goal-directed although his answers are very limited with little elaboration Thought Content: Patient denies auditory or visual hallucination and no delusions or paranoid ideation were elicited. Patient spends most of his time in his room not attending groups or activities. Patient states that he is sleeping and eating well. Patient continues to deny that he was using drugs prior to his admission and states he doesn't know what caused all of the issues upon his admission other than it was a misunderstanding at [facility]. Suicidal/Homicidal Ideation: Patient denies any current suicidal or homicidal ideation Sensorium/Cognition: Patient is alert and oriented to person, place, and time and his recent and remote memory are grossly intact Mood/Affect: Patient's mood is irritable and his affect is appropriate to his mood Insight/Judgment: Patient's insight and judgment are fair Risk Assessment: Patient's risk for readmission is moderate should he not be compliant with medication, appointments and began reusing drugs and/or alcohol. Discharge Plan: Patient will be discharged to return to live in his own apartment, he will continue to follow up with [facility] and continue on Abilify Maintena 400 mg every 28 days his next injection due on 11/2017. Patient declined prescriptions for melatonin and nicotine patches. Patient has a court hearing today at 1:30 PM and [facility] will take him to locate his car and the patient was aware that he needs to be compliant with the court hearing today. Patient was encouraged to avoid all alcohol and drugs and be compliant with medications and follow-up appointments at [facility]. Patient's prescription for Abilify Maintena was also provided. Patient Condition at Discharge: Stable Plan - Discharge Summary Discharge Rx Participant: No New Discharge Prescriptions: New ARIPiprazole IM [Abilify Maintena] 400 mg IM QMONTH #1 vial Discharge Medication List ARIPiprazole IM [Abilify Maintena] 400 mg IM QMONTH #1 vial 03/23/18 [Rx] Follow up Appointment(s)/Referral(s): [facility] [Outside] - 03/29/18 8:15 am (03/29 @ 08:15 with Tena Reardon 04/08 @ 12:[address] Ho ) None,Stated [Primary Care Provider] - 1-2 days Patient Instructions/Handouts: Depression (DC), Suicide Prevention for Adults ( DC) Activity/Diet/Wound Care/Special Instructions: Keep your follow up appointment as scheduled. Do not drink alcohol or use any street drugs. Call the crisis line if needed [phone]. Discharge Disposition: HOME SELF-CARE
[2018-03-23] MEDS: LORazepam 1 MG TAB PO PRN (11:16)
== END 2018-03-23 11:55 | DRG 885 ==
LOC: EC 16:08 → 3MHU 21:59
PROVIDERS: ADMIT Psychiatry & Neurology Psychiatry; ATTEND Psychiatry & Neurology Psychiatry
DX: F23 Brief psychotic disorder (principal); R45.851 Suicidal ideations; Z78.1 Physical restraint status; F17.200 Nicotine dependence, unspecified, uncomplicated; F32.9 Major depressive disorder, single episode, unspecified; F41.9 Anxiety disorder, unspecified; Z88.8 Allergy status to other drugs, medicaments and biological substances
CPT/HCPCS: 80053; 80061; 80306; 80307; 81003; 82075; 83036; 84443; 85025; 96372; 99285